=== PATIENT | male | born 1940 ===

== ENCOUNTER 2017-01-09 06:00 | Day surgery (SDC) | payer MEDICARE ==
[2017-01-06 09:03] VITALS: BMI 25.0
[2017-01-09 06:36] LABS: ADD MANUAL DIFF? NO
[2017-01-09 06:44] LABS: BASO # 0.03 K/mm3 (0.0-2.0); BASO % 0.7 % (0.0-3.0); EOS # 0.2 (0.0-0.7); EOS % 3.5 % (1.5-5.0); GRAN # 2.77 (1.4-6.5); GRAN % 60.6 % (50.0-68.0); HEMATOCRIT 43.4 % (42.0-52.0); LYMPH # 1.3 (1.2-3.4); LYMPH % 28.4 % (22.0-35.0); MEAN CELL VOLUME 89.1 fL (80.0-105.0); MEAN CORPUSCULAR HEMOGLOBIN 30.4 pg (25.0-35.0); MEAN CORPUSCULAR HGB CONC 34.1 g/dl (31.0-37.0); MEAN PLATELET VOLUME 9.9 fl (7.0-11.0); MONO # 0.3 (0.1-0.6); MONO % 6.8 % (1.0-6.0); PLATELET COUNT 210 10^3/uL (120.0-450.0); RED CELL DISTRIBUTION WIDTH 13.6 % (11.5-14.5); WHITE BLOOD COUNT 4.6 10^3/ul (4.5-11.0)
[2017-01-09 06:57] LABS: BLOOD UREA NITROGEN 20 mg/dL (7-21); CARBON DIOXIDE 31 mmol/L (21-33); CHLORIDE 100 mmol/L (98-107); CHOLESTEROL 210 mg/dL (130-200); GFR AFRICAN-AMERICAN > 60; GLUCOSE,RANDOM 90 mg/dL (70-110); POTASSIUM 3.8 mmol/L (3.6-5.0); SODIUM 140 mmol/L (132-148)
[2017-01-09 07:16] LABS: INR 1.03 (0.93-1.08); PARTIAL THROMBOPLASTIN TIME 28.9 Seconds (23.7-30.8)
--- NOTE | 2017-01-09 08:01 | HP ---
REASON FOR ADMISSION: Left heart catheterization, possible angioplasty. BRIEF CLINICAL HISTORY: This is a 76-year-old male with past medical history significant for hyperli pidemia, hypertension, admitted for elective cardiac catheterization because of abnormal stress test. The patient denies any chest pain, shortness of breath, any palpitation. PAST MEDICAL HISTORY: Significant for hypertension, hyperlipidemia, questionable history of dementia . CURRENT MEDICATIONS: The patient is taking at home omega 3, Requip, metoprolol XL 50 mg once a day, Aricept 10 mg daily, Celebrex 200 mg, aspirin 81 mg daily. ALLERGIES: No known drug allergy. Recent cardiac workup as follows: The patient had EKG that shows normal sinus, incomplete right bund le branch block, no acute ST-T changes. The patient had a stress test done dated 12/19/2016 that show s abnormal myocardial perfusion study, reversible apical inferior defect suspicious for ischemia, eje ction fraction 39%. In comparison to last study, 06/19/2012, these changes are new. The patient had echocardiography that shows ejection fraction 35%-40%. The patient was having a lot of PVCs and AFib during this, so ejection fraction may not be accurate. Mild aortic regurgitation, mild mitral regurgitation, mild to moderate tricuspid regurgitation, mild pulmonary insufficiency. REVIEW OF SYSTEMS: As per HPI. PHYSICAL EXAMINATION: VITAL SIGNS: Temperature afebrile, heart rate 80, blood pressure 130/86. HEENT: PERRLA. Extraocular muscles intact. NECK: Supple. No carotid bruits. No thyromegaly. CHEST: Clear to auscultation. HEART: S1, S2 regular. ABDOMEN: Soft. EXTREMITIES: Clubbing and cyanosis negative. BLOOD WORKUP: Pending. IMPRESSION: Abnormal stress test showing apical ischemia, ejection fraction 39%. Echo shows ejectio n fraction 35%-40%. RECOMMENDATION: Left heart catheterization. Further recommendations after cardiac catheterization. We will follow with you. Thank you, Dr. Vazquez and Dr. Lambert, for providing the opportunity in taking care of the patient. Forest Antonio MD cc: [id number] TT: 01/08/2017 21:17:01 rn
[2017-01-09] MEDS ORDERED: Lidocaine 2% Inj (20ml) ONE (08:32)
[2017-01-09] MEDS ORDERED: Midazolam 2 MG/2 ML VIAL ONE (08:33)
[2017-01-09] MEDS ORDERED: Iodixanol 320 MG/ML 200 ML BOTTLE IV ONE (08:33)
[2017-01-09] MEDS ORDERED: Nitroglycerin 50mg in D5W 50 MG/250 ML BOTTLE IV ONE (08:33)
[2017-01-09] MEDS ORDERED: Bacitracin 500 Units/gm Oint Foilpak UD TOP ONE (10:05)
[2017-01-09] MEDS ORDERED: Sodium Chloride 0.9% 1,000 ML IV SCH (10:15)
[2017-01-09] MEDS ORDERED: Bacitracin 500 Units/gm Oint Foilpak UD ONE (12:31)
[2017-01-09 14:05] VITALS: BP 140/70; PULSE 60; RESP 17; TEMP 98; O2SAT 96
--- NOTE | 2017-01-09 16:47 | CARD ---
APPROVED REPORT Procedure(s) performed: Left Heart Catheterization HISTORY The patient is a 76 year-old male with a history of : most recent EF: 39%. (EF Method: RADIONUCLIDE), tobacco history() : The patient is a former smoker , hypertension , dyslipidemia . INDICATION The indication(s) include : positive stress test, dyspnea. CASE TECHNIQUE The patient was brought electively to the Cardiac Catheterization Laboratory in a fasting state and was prepped and draped in a sterile manner. The left wrist was infiltrated with 2% Lidocaine subcutaneous anesthesia. A 6 Fr Glidesheath (Radial) sheath was inserted into the left radial artery without difficulty. Coronary angiography was performed using coronary diagnostic catheters. The left coronary system was accessed and visualized with a Diagnostic ,5 Fr JL 4 catheter. The right coronary system was accessed and visualized with a Diagnostic ,5 Fr JR 4 catheter. The left ventricle was accessed and visualized with a 5 Fr Pigtail 145 (Angled) catheter. Left ventricular/Aortic Valve gradient assessed on pullback. Left ventriculogram was performed in MARTINEZ projection. Closure device was deployed with a Fr TR Band (Large) without any complications. The patient tolerated the procedure well and there were no complications associated with the procedure. Vessel Analysis The patient's coronary anatomy is co-dominant. The left main coronary artery is a large size vessel with diffuse calcification noted throughout this vessel and without significant stenosis. The left main bifurcates to the left anterior descending and circumflex. The left anterior descending artery is a medium size vessel with diffuse calcification noted throughout this vessel and without significant stenosis. There is a 50% stenosis in the mid segment. The first diagonal branch is a large size vessel with diffuse calcification noted throughout this vessel and without significant stenosis. The second diagonal branch is a small size vessel with diffuse calcification noted throughout this vessel and without significant stenosis. The circumflex artery is a medium size vessel with diffuse calcification noted throughout this vessel and without significant stenosis. There is a 30-40% stenosis in the mid segment. The first obtuse marginal branch is a small size vessel with diffuse calcification noted throughout this vessel and without significant stenosis. The second obtuse marginal branch is a small size vessel with diffuse calcification noted throughout this vessel and without significant stenosis. The left posterior descending artery is a medium size vessel with diffuse calcification noted throughout this vessel and with significant stenosis. There is a 70% stenosis in the proximal segment. The right coronary artery is a large size vessel with diffuse calcification noted throughout this vessel and without significant stenosis. There is a 40% stenosis in the proximal to mid segment. The right posterior descending artery is a large size vessel with diffuse calcification noted throughout this vessel and with significant stenosis. There is a 95% stenosis in the proximal segment. The right posterolateral branch is a medium size vessel with diffuse calcification noted throughout this vessel and without significant stenosis. Left Ventricle The left ventricle is normal in size with mildly decreased contractility. Ischemic cardiomyopathy. The left ventricular ejection fraction is estimated to be 50%. The left ventricular end diastolic pressure is 15 mmHg. There was no gradient across the aortic valve upon pullback. 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 Mildly decreased LV Fx. EF-45-50%, EDP-15 mmof Hg. Recommendations PTCA of R PDA +/- L PDA( pt is on Aricept that precludes PTCA in Prim under C Port) will paramjit PTCA at [facility] next week. Aggressive medical treatment.( add Plavix and statin in current regimen) CC; Drs. Vazquez/ Petra.
== END 2017-01-09 14:00 | disposition home or self-care (01) ==
LOC: CATH 06:00
PROVIDERS: ATTEND Internal Medicine Cardiovascular Disease
DX: I25.10 Atherosclerotic heart disease of native coronary artery without angina pectoris (principal); E78.5 Hyperlipidemia, unspecified; I10 Essential (primary) hypertension; R94.39 Abnormal result of other cardiovascular function study; F03.90 Unspecified dementia, unspecified severity, without behavioral disturbance, psychotic disturbance, mood disturbance, and anxiety; I25.5 Ischemic cardiomyopathy; I45.10 Unspecified right bundle-branch block; I48.91 Unspecified atrial fibrillation; I49.3 Ventricular premature depolarization; I08.8 Other rheumatic multiple valve diseases; Z87.891 Personal history of nicotine dependence